=== PATIENT | male | born 1960 | race Caucasian/White ===

== ENCOUNTER 2018-08-23 08:49 | Emergency (ER) | payer OTHER ==
[~2018-08-23] VITALS: Ht 190.5 cm; Wt 148.9 kg
--- NOTE | 2018-08-23 08:49 | NUR ---
EKG IN PROGRESS
[2018-08-23 08:53] VITALS: Ht 190.5 cm; Wt 148.9 kg
--- NOTE | 2018-08-23 09:02 | NUR ---
PT SENT TO LOBBY NO S/S OF DISTRESS VITALS STABLE. SPEAKS IN CLEAR AND CONCISE SENTENCES WITHOUT DIFFICULTY.
[2018-08-23 09:29] LABS: BASOPHIL % 0.5 % (0-2); PLATELET COUNT 335 x10^3mcL (130-400); RED CELL DISTRIBUTION WIDTH 13.5 % (11.5-14.5)
[2018-08-23 09:42] LABS: CALCIUM 8.6 mg/dL (8.5-10.1); CARBON DIOXIDE 22.9 mmol/L (21-32); CHLORIDE SERUM 106 mmol/L (98-107); CREATININE SERUM 1.1 mg/dL (0.7-1.3); GFR1 > 60 mL/min; GLUCOSE SERUM 136 mg/dL (74-106); POTASSIUM SERUM 3.8 mmol/L (3.5-5.1); SODIUM SERUM 142 mmol/L (136-145)
[2018-08-23 09:47] LABS: ALBUMIN 3.4 g/dL (3.4-5.0); ALKALINE PHOSPHATASE 112 U/L (46-116); ALT/SGPT 35 U/L (16-63); AST/SGOT 12 U/L (15-37); BILIRUBIN TOTAL 0.48 mg/dL (0.20-1.00); TOTAL PROTEIN, SERUM 6.9 g/dL (6.4-8.2)
--- NOTE | 2018-08-23 10:03 | NUR ---
PT PRESENTS TO ED WITH C/O OF CHEST PAIN X1 DAY. PT STS HE WAS BBQING LAST NIGHT AND HAD A SUDDEN ONSET OF CHEST "TIGHTNESS". PT DESCRIBES PAIN "TIGHTNESS AND PRESSURE". PT DENIES RADIATING PAIN, DIAPHORESIS, DIZZINESS, OR SOB. PT LAYING ON GURNEY IN POSITION OF COMFORT, AAOX4, RESP E/U, NO ACUTE DISTRESS NOTED AT THIS TIME. PT CALL LIGHT WITHIN REACH, BED IN LOWEST POSITION, AT BEDSIDE.
--- NOTE | 2018-08-23 10:22 | NUR ---
AT [facility]
--- NOTE | 2018-08-23 10:54 | NUR ---
PT AMBULATED TO RESTROOM TO PROVIDE URINE SAMPLE, STEADY GAIT NOTED.
--- NOTE | 2018-08-23 11:17 | NUR ---
PT GIRLFRIEND ANDRAE LEFT CONTACT INFO [phone]
[2018-08-23 11:35] LABS: CALCIUM 8.7 mg/dL (8.5-10.1); MAGNESIUM 2.2 mg/dL (1.8-2.4)
[2018-08-23 11:56] LABS: UA SPECIFIC GRAVITY >=1.030 (1.005-1.035); microscopic required? YES; urine erythrocyte TRACE (NEGATIVE)
[2018-08-23 12:08] LABS: AMPHETAMINE QUAL UR NONE DETECTED (See below)
--- NOTE | 2018-08-23 12:13 | NUR ---
PT STS HE DOES NOT WANT TO BE ADMITTED TO HOSPITAL AND STS HE IS FEELING BETTER. MADE AWARE.
[2018-08-23 12:25] VITALS: BP 137/84
== END 2018-08-23 12:35 | disposition left against medical advice (07) ==
LOC: ED 08:49 → DU 12:10 → ED 12:35
PROVIDERS: Emergency Medicine; Specialist
DX: R07.89 Other chest pain (principal); I42.8 Other cardiomyopathies; I10 Essential (primary) hypertension; F15.20 Other stimulant dependence, uncomplicated; F12.90 Cannabis use, unspecified, uncomplicated; E66.01 Morbid (severe) obesity due to excess calories; I11.0 Hypertensive heart disease with heart failure; I50.9 Heart failure, unspecified; Z68.41 Body mass index [BMI] 40.0-44.9, adult; Z90.49 Acquired absence of other specified parts of digestive tract
CPT/HCPCS: 36600; 82962; 83880; J1940

== ENCOUNTER 2018-10-18 11:16 | Inpatient (IN) | payer OTHER ==
[~2018-10-18] VITALS: Ht 190.5 cm; Wt 145.6 kg
[2018-10-18 11:21] VITALS: Ht 190.5 cm; Wt 145.6 kg
[2018-10-18 11:49] LABS: BASOPHIL % 0.7 % (0-2); PLATELET COUNT 355 x10^3mcL (130-400); RED CELL DISTRIBUTION WIDTH 13.3 % (11.5-14.5)
[2018-10-18 11:54] LABS: CARBON DIOXIDE 25.5 mmol/L (21-32); CHLORIDE SERUM 105 mmol/L (98-107); CREATININE SERUM 1.2 mg/dL (0.7-1.3); GFR1 > 60 mL/min; GLUCOSE SERUM 198 mg/dL (74-106); POTASSIUM SERUM 3.8 mmol/L (3.5-5.1); SODIUM SERUM 141 mmol/L (136-145)
[2018-10-18 11:59] LABS: ALBUMIN 3.4 g/dL (3.4-5.0); ALKALINE PHOSPHATASE 127 U/L (46-116); ALT/SGPT 41 U/L (16-63); AST/SGOT 18 U/L (15-37); BILIRUBIN TOTAL 0.34 mg/dL (0.20-1.00); TOTAL PROTEIN, SERUM 7.4 g/dL (6.4-8.2)
[2018-10-18 18:41] VITALS: BP 146/87
[2018-10-18 20:43] LABS: CHOLESTEROL/HDL RATIO 3.4
[2018-10-18 20:53] LABS: FREE T4 1.11 ng/dL (0.76-1.46); FREE THYROXINE INDEX 2.6 ug/dL (1.4-4.5); T4(THYROXINE) 8.2 ug/dL (4.7-13.3)
[2018-10-18 20:55] LABS: T3 TOTAL 1.93 ng/mL
[2018-10-18 21:11] VITALS: BP 124/97
[2018-10-19 05:13] VITALS: BP 142/82
[2018-10-19 06:44] LABS: BASOPHIL % 0.4 % (0-2); PLATELET COUNT 383 x10^3mcL (130-400); RED CELL DISTRIBUTION WIDTH 13.3 % (11.5-14.5)
[2018-10-19 06:51] LABS: CALCIUM 8.7 mg/dL (8.5-10.1); CARBON DIOXIDE 27.1 mmol/L (21-32); CHLORIDE SERUM 104 mmol/L (98-107); CREATININE SERUM 1.1 mg/dL (0.7-1.3); GFR1 > 60 mL/min; GLUCOSE SERUM 122 mg/dL (74-106); MAGNESIUM 2.1 mg/dL (1.8-2.4); PHOSPHOROUS 4.1 mg/dL (2.5-4.9); POTASSIUM SERUM 3.8 mmol/L (3.5-5.1); SODIUM SERUM 142 mmol/L (136-145)
[2018-10-19 08:13] VITALS: BP 100/63
[2018-10-19 12:16] VITALS: BP 148/61
[2018-10-19 16:55] VITALS: BP 140/88
[2018-10-19 20:43] VITALS: BP 134/84
[2018-10-19 22:41] LABS: UA SPECIFIC GRAVITY 1.025 (1.005-1.035); microscopic required? YES; urine erythrocyte TRACE (NEGATIVE)
[2018-10-20 01:32] LABS: AMPHETAMINE QUAL UR NONE DETECTED (See below)
[2018-10-20 05:30] VITALS: BP 119/75
[2018-10-20 06:10] LABS: BASOPHIL % 0.3 % (0-2); PLATELET COUNT 379 x10^3mcL (130-400); RED CELL DISTRIBUTION WIDTH 12.8 % (11.5-14.5)
[2018-10-20 06:19] LABS: CARBON DIOXIDE 26.9 mmol/L (21-32); CHLORIDE SERUM 105 mmol/L (98-107); GFR1 > 60 mL/min; GLUCOSE SERUM 121 mg/dL (74-106); MAGNESIUM 2.2 mg/dL (1.8-2.4); PHOSPHOROUS 3.8 mg/dL (2.5-4.9); POTASSIUM SERUM 4.2 mmol/L (3.5-5.1); SODIUM SERUM 142 mmol/L (136-145)
[2018-10-20 08:24] VITALS: BP 119/84
[2018-10-20 16:01] VITALS: BP 119/84
== END 2018-10-20 18:15 | disposition home or self-care (01) | DRG 254 ==
LOC: ED 11:16 → DU 17:37 → MU 10-19 14:53
PROVIDERS: Internal Medicine; ADMIT Internal Medicine
DX: K44.9 Diaphragmatic hernia without obstruction or gangrene (principal); I11.0 Hypertensive heart disease with heart failure; I50.9 Heart failure, unspecified; M19.90 Unspecified osteoarthritis, unspecified site; Z90.49 Acquired absence of other specified parts of digestive tract; Z91.19 Patient's noncompliance with other medical treatment and regimen; R07.89 Other chest pain
CPT/HCPCS: 83880; 84439; 85378; G0378; J1940; Q0092; Q9967

== ENCOUNTER 2018-11-24 21:47 | Emergency (ER) | payer OTHER ==
[~2018-11-24] VITALS: Ht 190.5 cm; Wt 152.0 kg
[2018-11-24 21:52] VITALS: Ht 190.5 cm; Wt 152.0 kg
[2018-11-24 22:38] VITALS: BP 156/95
== END 2018-11-24 22:40 | disposition other institution (70) ==
LOC: ED 21:47
DX: Z02.89 Encounter for other administrative examinations (principal)
CPT/HCPCS: J7030

== ENCOUNTER 2020-02-10 04:40 | Emergency (ER) | payer MEDICAID | END 2020-02-10 05:09 | disposition left against medical advice (07) | LOC: ED 04:40 | DX: Z53.21 Procedure and treatment not carried out due to patient leaving prior to being seen by health care provider (principal) ==

== ENCOUNTER 2020-02-14 11:47 | Emergency (ER) | payer MEDICAID ==
[~2020-02-14] VITALS: Ht 190.5 cm; Wt 165.6 kg
[2020-02-14 12:08] VITALS: Ht 190.5 cm; Wt 165.6 kg
[2020-02-14 18:42] LABS: BASOPHIL % 0.3 % (0.2-1.5); CALCIUM 9.6 mg/dL (8.5-10.1); CARBON DIOXIDE 31.6 mmol/L (21-32); CHLORIDE SERUM 101 mmol/L (98-107); CREATININE SERUM 1.1 mg/dL (0.7-1.3); GFR1 > 60 mL/min; GLUCOSE SERUM 149 mg/dL (74-106); PLATELET COUNT 382 x10^3mcL (152-348); RED CELL DISTRIBUTION WIDTH 13.2 % (12.1-16.2); SODIUM SERUM 140 mmol/L (136-145)
[2020-02-14 18:55] LABS: ALKALINE PHOSPHATASE 146 U/L (46-116); ALT/SGPT 64 U/L (16-63); AST/SGOT 29 U/L (15-37); BILIRUBIN TOTAL 0.4 mg/dL (0.20-1.00); CHOLESTEROL 166 mg/dL (<200); HDL CHOLESTEROL 55 mg/dL (40-60); LIPASE 106 IU/L (73-393); MAGNESIUM 2.3 mg/dL (1.8-2.4); T4(THYROXINE) 9.1 ug/dL (4.7-13.3)
[2020-02-14 20:01] LABS: microscopic required? NO
[2020-02-14 20:23] VITALS: BP 130/75
[2020-02-14 20:34] LABS: UA SPECIFIC GRAVITY 1.025 (1.005-1.035); urine erythrocyte NEGATIVE (NEGATIVE)
[2020-02-14 20:56] LABS: AMPHETAMINE QUAL UR POSITIVE (See below)
== END 2020-02-14 20:23 | disposition left against medical advice (07) ==
LOC: ED 11:47
PROVIDERS: Emergency Medicine
DX: L03.116 Cellulitis of left lower limb (principal); L03.115 Cellulitis of right lower limb; I10 Essential (primary) hypertension; E66.9 Obesity, unspecified; F12.10 Cannabis abuse, uncomplicated; Z68.42 Body mass index [BMI] 45.0-49.9, adult; Z20.828 Contact with and (suspected) exposure to other viral communicable diseases
CPT/HCPCS: 82962; J0295; J1940; U0003